=== PATIENT | female | born 1965 | race Caucasian/White ===

== ENCOUNTER 2020-11-07 12:24 | Emergency (ER) | payer SELFPAY ==
[2020-11-07 12:33] VITALS: BP 156/95; PULSE 113; RESP 16; TEMP 37.4; O2SAT 98; BMI 37.7
== END 2020-11-07 16:36 | disposition left against medical advice (07) ==
PROVIDERS: Emergency Provider Emergency Medicine
DX: H92.09 Otalgia, unspecified ear (principal); R11.2 Nausea with vomiting, unspecified; R50.9 Fever, unspecified
CPT/HCPCS: 99282